=== PATIENT | female | born 1965 | race Caucasian/White ===

== ENCOUNTER 2020-09-05 13:24 | Emergency (ER) | payer BC, OTHER ==
[~2020-09-05] VITALS: Ht 167.6 cm; Wt 56.7 kg
[2020-09-05 16:05] VITALS: BP 179/96
== END 2020-09-05 16:06 | disposition home or self-care (01) ==
LOC: ER 13:24
DX: S01.312A Laceration without foreign body of left ear, initial encounter (principal); W01.198A Fall on same level from slipping, tripping and stumbling with subsequent striking against other object, initial encounter; Y93.89 Activity, other specified; Y92.89 Other specified places as the place of occurrence of the external cause; Y99.8 Other external cause status